=== PATIENT | female | born 1950 | race Hispanic/Latino ===

== ENCOUNTER 2018-06-29 17:22 | Emergency (ER) | payer MEDICARE, OTHER ==
[~2018-06-29] VITALS: Ht 154.9 cm; Wt 81.6 kg
[~2018-06-29 17:22] MED LIST: AMLODIPINE BESYL5 MG; HYDROCHLOROTHIA25 MG; HYDROCODONE; MAGNESIUM OXID400 MG PO; METOPROLOL SUCC50 MG PO; NORCO 7.5-3251 EACH PO; POTASSIUM CHLO10 ME1 PO
--- OUTSIDE RECORDS SUMMARY | 2018-06-29 17:27 | XMS REPORT ---
[facility] Address Unknown Phone Unavailable Care Team Providers Care Floor Covering Layer Name Role Phone Unavailable Unavailable Payers Payer Name Policy Type Policy Number Effective Date Expiration Date Problems This patient has no known problems. Allergies, Adverse Reactions, Alerts Allergy Name Allergy Type Status Severity Reaction(s) Onset Date Inactive Date Treating Clinician Comments No Known Allergies DA Active U 2018-03-09 00:00:00 No Known Allergies DA Active U 2012-12-16 00:00:00 Medications This patient has no known medications.
[2018-06-29] MEDS ORDERED: CYCLOBENZAPRINE HCL 10 MG TAB PO ONE (18:00)
[2018-06-29] MEDS ORDERED: HYDROCODONE/APAP 7.5MG-325MG 1 EA TAB PO PRN (18:00)
--- NOTE | 2018-06-29 18:32 | NUR ---
C/O CHEST PAIN, ONSET WHILE SITTING IN LOBBY. NO SIGNS OF ACUTE DISTRESS NOTED AT THIS TIME. NOTIFIED CASSY DE SANTIAGO NP.
[2018-06-29] MEDS ORDERED: ASPIRIN 81 MG CHEW TAB PO ONE (18:45)
[2018-06-29 19:27] LABS: BASOPHILS # (AUTO) 0.1 (0.0-0.1); BASOPHILS % 0.7 % (0.0-1.0); EOSINOPHILS # (AUTO) 0.2 (0.0-0.4); HEMATOCRIT 41.2 % (34.2-44.1); HEMOGLOBIN 13.4 g/dL (12.0-16.0); LYMPHOCYTES # (AUTO) 2.2 (1.0-3.2); LYMPHOCYTES % 30.1 % (18.0-39.1); MEAN CORPUSCULAR HEMOGLOBIN 28.2 pg (28-32); MEAN CORPUSCULAR HGB CONC 32.5 g/dL (31-35); MEAN CORPUSCULAR VOLUME 86.6 fL (81-99); MONOCYTES # (AUTO) 0.6 (0.2-0.8); MONOCYTES % 8.2 % (4.4-11.3); NEUTROPHILS # (AUTO) 4.3 (2.1-6.9); NEUTROPHILS % 58.7 % (38.7-80.0); PLATELET COUNT 201 x10e3/uL (140-360); RED BLOOD COUNT 4.76 x10e6/uL (3.6-5.1); RED CELL DISTRIBUTION WIDTH 14.8 % (11.7-14.4)
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
[2018-06-29 19:45] LABS: ALANINE AMINOTRANSFERASE 23 IU/L (0-55); ALBUMIN 3.6 g/dL (3.5-5.0); ALKALINE PHOSPHATASE 93 IU/L (40-150); ANION GAP 13.8 mmol/L (8-16); BLOOD UREA NITROGEN 22 mg/dL (7-26); BUN/CREATININE RATIO 29 (6-25); CALCIUM 9.4 mg/dL (8.4-10.2); CARBON DIOXIDE 24 mmol/L (22-29); CHLORIDE 105 mmol/L (98-107); CREATINE KINASE 83 IU/L (29-168); CREATININE, SERUM 0.76 mg/dL (0.57-1.11); EST GLOMERULAR FILTRATION RATE > 60 ML/MIN (60-); GLUCOSE 108 mg/dL (74-118); POTASSIUM 3.8 mmol/L (3.5-5.1); SODIUM 139 mmol/L (136-145)
[2018-06-29 19:48] LABS: INR 0.85; PARTIAL THROMBOPLASTIN TIME 24.5 seconds (23.8-35.5); PROTHROMBIN TIME 12.4 seconds (11.9-14.5)
[2018-06-29 20:09] VITALS: BP 135/65
[2018-06-29] MEDS ORDERED: CYCLOBENZAPRINE5 MG PO (20:21)
[2018-06-29] MEDS ORDERED: ULTRAM 50MG50 MG PO (20:21)
== END 2018-06-29 20:22 | disposition home or self-care (01) ==
LOC: ER 17:22
DX: M54.2 Cervicalgia (principal); S16.1XXA Strain of muscle, fascia and tendon at neck level, initial encounter; S39.012A Strain of muscle, fascia and tendon of lower back, initial encounter; V43.52XA Car driver injured in collision with other type car in traffic accident, initial encounter; Y92.488 Other paved roadways as the place of occurrence of the external cause; I10 Essential (primary) hypertension
CPT/HCPCS: 36415; 71046; 72050; 80053; 82550; 82553; 84484; 85025; 85610; 85730; 93005; 99284

== ENCOUNTER 2019-12-03 16:29 | Emergency (ER) | payer MEDICARE, OTHER ==
[~2019-12-03] VITALS: Ht 154.9 cm; Wt 81.6 kg
[~2019-12-03 16:29] MED LIST changes: +CYCLOBENZAPRINE5 MG PO; +ULTRAM 50MG50 MG PO
--- NOTE | 2019-12-03 19:42 | Emergency Department Note ---
History of Present Illnes History of Present Illness Chief Complaint: General Medicine Complaints History of Present Illness This is a 69 year old female PATIENT IN FROM HOME STATING "I AM HERE FOR A COVID TEST". PATIENT STATES THAT HER DAUGHTER TESTED POSITIVE. PATIENT STATES SHE HAS HAD A COUGH SINCE YESTERDAY, NO FEVER, CHILLS, NAUSEA, VOMITING, DIARRHEA, OR SHORTNESS OF BREATH. PATIENT ALERT AND ORIENTED, RESP EVEN AND NONLABORED, APPEARS IN NO DISTRESS, O2 SATS 97% ON ROOM AIR, AMBULATORY WITH STEADY GAIT. 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 Any updates have been documented here. Past Medical History Recent Fever: No Clinical Suspicion of Infectio: No New/Unexplained Change in Ment: No Past Medical History: Hypertension Other Medical History: KIDNEY STONES Past Surgical History: Hysterectomy Social History Smoking Cessation: Never Smoker Counseling Performed: No Alcohol Use: None Any Illegal Drug Use: No TB Exposure/Symptoms: No Physically hurt or threatened: No Family History Family history of heart diseas: No Other Last Tetanus: UNKNOWN Any Pre-Existing Lines (PICC,: No Is patient up to date on immun: Yes Last Flu: UTD Last Pneumovax: UTD Review of Systems Review of Systems Constitutional: Reports no symptoms EENTM: Reports no symptoms Cardiovascular: Reports no symptoms Respiratory: Reports cough; Denies dyspnea Gastrointestinal: Reports no symptoms Genitourinary: Reports no symptoms Musculoskeletal: Reports no symptoms Integumentary: Reports no symptoms Neurological: Reports no symptoms Psychological: Reports no symptoms Endocrine: Reports no symptoms Hematological/Lymphatic: Reports no symptoms Physical Exam Related Data Allergies: Coded Allergies: No Known Allergies (Unverified , 02/08/13) Triage Vital Signs Vital Signs Date Time Temp Pulse Resp B/P (MAP) Pulse Ox O2 Delivery O2 Flow Rate FiO2 12/03/19 16:47 98.8 74 18 192/92 97 Vital signs reviewed: Yes Physical Exam CONSTITUTIONAL Constitutional: Present well-developed, Present well-nourished HENT HENT: Present normocephalic, Present atraumatic, Present oropharynx clear/moist, Present nose normal HENT L/R: Present left ext ear normal, Present right ext ear normal EYES Eyes: Reports PERRL, Reports conjunctivae normal NECK Neck: Present ROM normal PULMONARY Pulmonary: Present effort normal, Present breath sounds normal CARDIOVASCULAR Cardiovascular: Present regular rhythm, Present heart sounds normal, Present capillary refill normal, Present normal rate GASTROINTESTINAL Abdominal: Present soft, Present nontender, Present bowel sounds normal GENITOURINARY Genitourinary: Present exam deferred SKIN Skin: Present warm, Present dry MUSCULOSKELETAL Musculoskeletal: Present ROM normal NEUROLOGICAL Neurological: Present alert, Present oriented x 3, Present no gross motor or sensory deficits PSYCHOLOGICAL Psychological: Present mood/affect normal, Present judgement normal Assessment & Plan Medical Decision Making MDM PT'S VITALS ARE NORMAL, O2 SAT NORMAL. EXPLAINED NEED TO GET OUTPT COVID TEST, SELF-QUARANTINE, PRONING, F/U PCP AND RTED IF SX'S WORSEN, SOB, CP Assessment & Plan Final Impression: (1) Viral bronchitis Depart Disposition: HOME, SELF-CARE Last Vital Signs Date Time Temp Pulse Resp B/P (MAP) Pulse Ox O2 Delivery O2 Flow Rate FiO2 12/03/19 16:47 98.8 74 18 192/92 97 Home Meds Reported Medications Tramadol Hcl* (ULTRAM 50MG*) 50 Mg Tab, 50 MG PO Q6H PRN for PAIN, TAB 1-2 tabs 06/29/18 Cyclobenzaprine Hcl (FLEXERIL) 5 Mg Tablet, 10 MG PO TID PRN for MUSCLE SPASMS 06/29/18 Potassium Chloride (POTASSIUM CHLORIDE) 10 Meq Tab.er.prt, 10 MEQ PO DAILY, TAB 11/22/15 Magnesium Oxide (MAGNESIUM OXIDE) 400 Mg Tablet, 400 MG PO BID, TAB 11/22/15 Metoprolol Succinate (METOPROLOL SUCCINATE) 50 Mg Tab.er.24h, 50 MG PO DAILY, MG 11/22/15 PRINCESS LEES MD Dec 03, 2019 19:42
== END 2019-12-03 17:10 | disposition home or self-care (01) ==
LOC: ER 16:29
DX: R05 Cough (principal); J20.8 Acute bronchitis due to other specified organisms
CPT/HCPCS: 99282

== ENCOUNTER 2019-12-05 05:43 | Emergency (ER) | payer MEDICARE, OTHER ==
[~2019-12-05] VITALS: Ht 162.6 cm; Wt 87.1 kg
[2019-12-05] MEDS ORDERED: SODIUM CHLORIDE 0.9% 1000ML 1,000 ML IV STA ×2 (06:08→06:12)
[2019-12-05] MEDS ORDERED: SODIUM CHLORIDE 0.9% 1000ML 1,000 ML ONE ×2 (06:13→07:01)
[2019-12-05] MEDS ORDERED: DICYCLOMINE HCL 20 MG/2 ML VIAL IM ONE ×2 (06:15→07:01)
[2019-12-05] MEDS ORDERED: LEVOFLOXACIN 750MG/D5W 150ML 150 ML IV STA (06:47)
--- NOTE | 2019-12-05 06:50 | Emergency Department Note ---
History of Present Illnes History of Present Illness Chief Complaint: diarrhea History of Present Illness This is a 69 year old female. was doing well until 5 days ago then cough, f/c then dx with pneumonia 1 day and started antibiotics. then copious diarrhea. then ble cramps. Arrival Mode: Car History limited by: condition of the patient (normal) Life Coach Required: No Onset (how long ago): day(s) (5) Location: n/a Quality: n/a Severity: moderate Onset quality: gradual Duration (how long): day(s) (5 ) Timing of current episode: intermittent Progression: resolved Context: Denies recent illness, Denies recent surgery, Denies recent immobilization, Denies recent travel Relieving factors: none Exacerbating factors: none Associated symptoms: Reports cough Treatments prior to arrival: none Past Medical/Family History Physician Review I have reviewed the patient's past medical and family history. Any updates have been documented here. Past Medical History Recent Fever: No Clinical Suspicion of Infectio: No New/Unexplained Change in Ment: No Past Medical History: Hypertension Other Medical History: KIDNEY STONES Past Surgical History: Hysterectomy Social History Smoking Cessation: Never Smoker Alcohol Use: Social Any Illegal Drug Use: No TB Exposure/Symptoms: No Physically hurt or threatened: No Family History Family history of heart diseas: No Other Last Tetanus: UNKNOWN Any Pre-Existing Lines (PICC,: No Is patient up to date on immun: No Review of Systems Review of Systems Constitutional: Reports no symptoms EENTM: Reports no symptoms Cardiovascular: Reports no symptoms Respiratory: Reports as per HPI Gastrointestinal: Reports as per HPI Genitourinary: Reports no symptoms Musculoskeletal: Reports no symptoms Integumentary: Reports no symptoms Neurological: Reports no symptoms Psychological: Reports no symptoms Endocrine: Reports no symptoms Hematological/Lymphatic: Reports no symptoms Review of other systems: All other systems negative Physical Exam Related Data Allergies: Coded Allergies: No Known Allergies (Unverified , 02/08/13) Vital signs reviewed: Yes Physical Exam CONSTITUTIONAL Constitutional: Present well-developed, Present well-nourished HENT HENT: Present normocephalic, Present atraumatic, Present nose normal, Present other (dry mm) HENT L/R: Present left ext ear normal, Present right ext ear normal EYES Eyes: Reports PERRL, Reports conjunctivae normal NECK Neck: Present ROM normal, Present supple PULMONARY Pulmonary: Present effort normal, Present breath sounds normal CARDIOVASCULAR Cardiovascular: Present regular rhythm, Present heart sounds normal, Present capillary refill normal, Present normal rate GASTROINTESTINAL Abdominal: Present soft, Present nontender, Present bowel sounds normal GENITOURINARY Genitourinary: Present exam deferred SKIN Skin: Present warm, Present dry MUSCULOSKELETAL Musculoskeletal: Present ROM normal NEUROLOGICAL Neurological: Present alert, Present oriented x 3, Present no gross motor or sensory deficits PSYCHOLOGICAL Psychological: Present mood/affect normal, Present judgement normal Results Imaging Imaging results reviewed: Yes Impressions [place] [address] Patient Name: CARLY ALTAMIRANO MR #: [id number] : 1950 Age/Sex: 69/F Req #: [id number] Adm Physician: Ordered by: SANTOS GASTON Report #: [id number] Location: [facility] Room/Bed: Procedure: [id number] HOPD/CXR 1 W - HOPD Exam Date: 12/05/19 Exam Time: 0635 REPORT STATUS: Signed Examination: Single AP view of the chest. COMPARISON: Chest 2 views 06/29/2018 INDICATION: Cough, diagnosed with pneumonia IMPRESSION: Exam limited by soft tissue attenuation from body habitus. 1. Lines and Tubes: None 2. Lungs are well-inflated. Atelectatic changes in the right base, likely due to eventration of the right hemidiaphragm. The lateral aspect of the left hemidiaphragm and left costophrenic angle are not clearly visualized. This may reflect left effusion and atelectasis or consolidation. Recommend chest PA and lateral for further evaluation. 3. Stable enlargement of the cardiac silhouette. Central pulmonary venous congestion. 4. No acute bony abnormalities. Signed by: Dr. Greta Torres M.D. on 12/05/2019 6:57 AM Dictated By: GRETA TORRES MD 6 Transcribed By: RUDDY on 12/05/19656 COPY TO: SANTOS GASTON~ Assessment & Plan Medical Decision Making MDM TAKE RXED MEDS. F/U PCP Reassessment Reassessment SYMPTOMS RESOLVED S/P MEDS Assessment & Plan Final Impression: (1) Diarrhea (2) Dehydration (3) Pneumonia Depart Disposition: HOME, SELF-USP Meds Active Scripts Cyclobenzaprine Hcl (FLEXERIL) 5 Mg Tablet, 10 MG PO Q8H PRN for MUSCLE SPASMS, #15 1 Refill Prov:SANTOS GASTON 12/05/19 Levofloxacin (LEVAQUIN) 750 Mg Tablet, 750 MG PO DAILY for 10 Days, TAB start tomorrow Prov:SANTOS GASTON 12/05/19 Diphenoxylate Hcl/Atropine (LOMOTIL TABLET) 1 Each Tablet, 2 TAB PO Q6HR PRN for DIARRHEA, #24 TAB 1 Refill Prov:SANTOS GASTON 12/05/19 Reported Medications Tramadol Hcl* (ULTRAM 50MG*) 50 Mg Tab, 50 MG PO Q6H PRN for PAIN, TAB 1-2 tabs 06/29/18 Cyclobenzaprine Hcl (FLEXERIL) 5 Mg Tablet, 10 MG PO TID PRN for MUSCLE SPASMS 06/29/18 Potassium Chloride (POTASSIUM CHLORIDE) 10 Meq Tab.er.prt, 10 MEQ PO DAILY, TAB 11/22/15 Magnesium Oxide (MAGNESIUM OXIDE) 400 Mg Tablet, 400 MG PO BID, TAB 11/22/15 Metoprolol Succinate (METOPROLOL SUCCINATE) 50 Mg Tab.er.24h, 50 MG PO DAILY, MG 11/22/15 Medications in the ED Sodium Chloride 1,000 ml @ ud STK-MED ONCE .ROUTE ; Start 12/05/19 at 06:13; Stop 12/05/19 at 06:09; Status DC Sodium Chloride 1,000 ml @ 2,000 mls/hr Q30M STAT IV ; Start 12/05/19 at 06:08; Stop 12/05/19 at 06:37 Sodium Chloride 1,000 ml @ 2,000 mls/hr Q30M STAT IV ; Start 12/05/19 at 06:12; Stop 12/05/19 at 06:41 Dicyclomine HCl 20 mg ONCE ONCE IM ; Start 12/05/19 at 06:15; Stop 12/05/19 at 06:16 SANTOS GASTON Dec 05, 2019 06:50
--- NOTE | 2019-12-05 07:00 | Diagnostic Imaging Report ---
Examination: Single AP view of the chest. COMPARISON: Chest 2 views 06/29/2018 INDICATION: Cough, diagnosed with pneumonia IMPRESSION: Exam limited by soft tissue attenuation from body habitus. 1. Lines and Tubes: None 2. Lungs are well-inflated. Atelectatic changes in the right base, likely due to eventration of the right hemidiaphragm. The lateral aspect of the left hemidiaphragm and left costophrenic angle are not clearly visualized. This may reflect left effusion and atelectasis or consolidation. Recommend chest PA and lateral for further evaluation. 3. Stable enlargement of the cardiac silhouette. Central pulmonary venous congestion. 4. No acute bony abnormalities. Signed by: Dr. Facundo Rodriguez M.D. on 12/05/2019 6:57 AM
[2019-12-05] MEDS ORDERED: LEVAQUIN750 MG PO (07:16)
[2019-12-05] MEDS ORDERED: LOMOTIL TABLET1 EACH PO (07:16)
[2019-12-05] MEDS ORDERED: CYCLOBENZAPRINE5 MG PO (07:16)
[2019-12-05] MEDS ORDERED: ACETAMINOPHEN 325 MG TAB ONE (07:58)
[2019-12-05] MEDS ORDERED: ACETAMINOPHEN 325 MG TAB PO ONE (08:00)
== END 2019-12-05 09:27 | disposition home or self-care (01) ==
LOC: FSED 05:43
DX: R50.9 Fever, unspecified (principal); R05 Cough; E86.0 Dehydration; J18.9 Pneumonia, unspecified organism; R19.7 Diarrhea, unspecified; I10 Essential (primary) hypertension
CPT/HCPCS: 71045; 80076; 81003; 85025; 96372; 99284; J0500; J7030

== ENCOUNTER 2019-12-06 16:16 | Emergency (ER) | payer OTHER ==
[~2019-12-06] VITALS: Ht 162.6 cm; Wt 87.1 kg
[~2019-12-06 16:16] MED LIST changes: +LEVAQUIN750 MG PO; +LOMOTIL TABLET1 EACH PO
[2019-12-06] MEDS ORDERED: SODIUM CHLORIDE 0.9% 1000ML 1,000 ML IV STA (16:59)
[2019-12-06] MEDS ORDERED: PANTOPRAZOLE 40 MG 10ML VIAL IV ONE (16:59)
[2019-12-06] MEDS ORDERED: ONDANSETRON HCL INJ 2MG/ML 2ML 2 MG/ML VIAL IV ONE (16:59)
--- NOTE | 2019-12-06 17:21 | Emergency Department Note ---
History of Present Illnes History of Present Illness Chief Complaint: COVID PUI History of Present Illness This is a 69 year old female Patient in from home via EMS with complaints of fever since yesterday as well as a cough. Patient reports that she was recently hospitalized for bronchitis and discharged home on antibiotics which caused diarrhea and dehydration per the patient. She believes that all of her symptoms are caused by the dehydration. Patient refused to be tested for Covid 19 again because she says she was tested a week and a half ago and does n ot need to be tested again. 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 Any updates have been documented here. Past Medical History Recent Fever: Yes Clinical Suspicion of Infectio: No New/Unexplained Change in Ment: No Past Medical History: Hypertension Other Medical History: KIDNEY STONES Past Surgical History: None Social History Smoking Cessation: Former smoker Counseling Performed: No Alcohol Use: None Any Illegal Drug Use: No TB Exposure/Symptoms: No Physically hurt or threatened: No Family History Family history of heart diseas: Yes Other Last Tetanus: UNKNOWN Review of Systems Review of Systems Constitutional: Reports as per HPI EENTM: Reports no symptoms Cardiovascular: Reports no symptoms Respiratory: Reports as per HPI Gastrointestinal: Reports no symptoms Genitourinary: Reports no symptoms Musculoskeletal: Reports no symptoms Integumentary: Reports no symptoms Neurological: Reports no symptoms Psychological: Reports no symptoms Endocrine: Reports no symptoms Hematological/Lymphatic: Reports no symptoms Physical Exam Related Data Allergies: Coded Allergies: No Known Allergies (Unverified , 02/08/13) Triage Vital Signs Vital Signs Date Time Temp Pulse Resp B/P (MAP) Pulse Ox O2 Delivery O2 Flow Rate FiO2 12/06/19 16:29 100.1 79 26 148/71 100 Vital signs reviewed: Yes Physical Exam CONSTITUTIONAL Constitutional: Present obese HENT HENT: Present normocephalic, Present atraumatic, Present oropharynx clear /moist, Present nose normal HENT L/R: Present left ext ear normal, Present right ext ear normal EYES Eyes: Reports PERRL, Reports conjunctivae normal NECK Neck: Present ROM normal PULMONARY Pulmonary: Present breath sounds normal, Present other (MILD TACHYPNEA) CARDIOVASCULAR Cardiovascular: Present regular rhythm, Present heart sounds normal, Present capillary refill normal, Present normal rate GASTROINTESTINAL Abdominal: Present soft, Present nontender, Present bowel sounds normal GENITOURINARY Genitourinary: Present exam deferred SKIN Skin: Present warm, Present dry MUSCULOSKELETAL Musculoskeletal: Present ROM normal NEUROLOGICAL Neurological: Present alert, Present oriented x 3, Present no gross motor or sensory deficits PSYCHOLOGICAL Psychological: Present mood/affect normal, Present judgement normal Assessment & Plan Medical Decision Making MDM PT REFUSES ANY WORKUP Reassessment Reassessment PT DECIDED TO LEAVE AND DOESN'T WANT ANYTHING DONE, SHE IS A&OX4 UNDERSTANDS RISKS INCLUDING . SHE IS DISCHARGED FROM MY CARE, WELCOME TO RETURN FOR ANY CONCERNS Assessment & Plan Final Impression: (1) Viral syndrome Depart Disposition: HOME, SELF-CARE Last Vital Signs Date Time Temp Pulse Resp B/P (MAP) Pulse Ox O2 Delivery O2 Flow Rate FiO2 12/06/19 16:29 100.1 79 26 148/71 100 Home Meds Active Scripts Cyclobenzaprine Hcl (FLEXERIL) 5 Mg Tablet, 10 MG PO Q8H PRN for MUSCLE SPASMS, #15 1 Refill Prov:SANTOS GASTON 12/05/19 Levofloxacin (LEVAQUIN) 750 Mg Tablet, 750 MG PO DAILY for 10 Days, TAB start tomorrow Prov:SANTOS GASTON 12/05/19 Diphenoxylate Hcl/Atropine (LOMOTIL TABLET) 1 Each Tablet, 2 TAB PO Q6HR PRN for DIARRHEA, #24 TAB 1 Refill Prov:SANTOS GASTON 12/05/19 Reported Medications Tramadol Hcl* (ULTRAM 50MG*) 50 Mg Tab, 50 MG PO Q6H PRN for PAIN, TAB 1-2 tabs 06/29/18 Cyclobenzaprine Hcl (FLEXERIL) 5 Mg Tablet, 10 MG PO TID PRN for MUSCLE SPASMS 06/29/18 Potassium Chloride (POTASSIUM CHLORIDE) 10 Meq Tab.er.prt, 10 MEQ PO DAILY, TAB 11/22/15 Magnesium Oxide (MAGNESIUM OXIDE) 400 Mg Tablet, 400 MG PO BID, TAB 11/22/15 Metoprolol Succinate (METOPROLOL SUCCINATE) 50 Mg Tab.er.24h, 50 MG PO DAILY, MG 11/22/15 Medications in the ED Pantoprazole Sodium 40 mg ONCE ONCE IV ; Start 12/06/19 at 16:59; Stop 12/06/19 at 17:05; Status DC Ondansetron HCl 4 mg ONCE ONCE IV ; Start 12/06/19 at 16:59; Stop 12/06/19 at 17:05; Status DC Sodium Chloride 1,000 ml @ 0 mls/hr Q0M STAT IV ; Start 12/06/19 at 16:59; Stop 12/06/19 at 17:04; Status DC PRINCESS LEES MD Dec 06, 2019 17:21
== END 2019-12-06 17:42 | disposition home or self-care (01) ==
LOC: ER 16:16
DX: R50.9 Fever, unspecified (principal); R05 Cough; I10 Essential (primary) hypertension; B34.9 Viral infection, unspecified
CPT/HCPCS: 99283

== ENCOUNTER 2019-12-08 10:49 | Emergency (ER) | payer MEDICARE, OTHER ==
[~2019-12-08] VITALS: Ht 154.9 cm; Wt 87.1 kg
--- NOTE | 2019-12-08 11:08 | Emergency Department Note ---
History of Present Illnes History of Present Illness History of Present Illness This is a 69 year old female recently tx for pna, here for f/u. She has been taking levoquin ( 2 days left) She still has low grade fever, mild coughing body ache. COVID negative on the . She asked for work note Past Medical History Hypertension Other Medical History KIDNEY STONES Past Surgical History: None . Arrival Mode: Car Onset (how long ago): day(s) Radiation: Reports non-radiation Duration (how long): day(s) Progression: improving Context: Reports recent illness Relieving factors: none Exacerbating factors: none Associated symptoms: Reports cough, Reports fever/chills, Reports malaise Treatments prior to arrival: none Past Medical/Family History Physician Review I have reviewed the patient's past medical and family history. Any updates have been documented here. Past Medical History Recent Fever: No Clinical Suspicion of Infectio: No New/Unexplained Change in Ment: No Past Medical History: Hypertension Other Medical History: KIDNEY STONES Past Surgical History: None Social History Smoking Cessation: Smoker current status unk Counseling Performed: No Any Illegal Drug Use: No TB Exposure/Symptoms: No Physically hurt or threatened: No Family History Family history of heart diseas: No Other Last Tetanus: UNKNOWN Is patient up to date on immun: No Review of Systems Review of Systems Constitutional: Reports chills, Reports fever, Reports malaise EENTM: Reports no symptoms Cardiovascular: Reports no symptoms Respiratory: Reports no symptoms, Reports chest congestion, Reports cough Gastrointestinal: Reports no symptoms Genitourinary: Reports no symptoms Musculoskeletal: Reports no symptoms Integumentary: Reports no symptoms Neurological: Reports no symptoms Psychological: Reports no symptoms Endocrine: Reports no symptoms Hematological/Lymphatic: Reports no symptoms Physical Exam Related Data Allergies: Coded Allergies: No Known Allergies (Unverified , 02/08/13) Physical Exam CONSTITUTIONAL Constitutional: Present well-developed, Present obese HENT HENT: Present normocephalic, Present atraumatic, Present oropharynx clear/moist, Present nose normal HENT L/R: Present left ext ear normal, Present right ext ear normal EYES Eyes: Reports PERRL, Reports conjunctivae normal NECK Neck: Present ROM normal PULMONARY Pulmonary: Present effort normal, Present breath sounds normal CARDIOVASCULAR Cardiovascular: Present regular rhythm, Present heart sounds normal, Present capillary refill normal, Present normal rate GASTROINTESTINAL Abdominal: Present soft, Present nontender, Present bowel sounds normal GENITOURINARY Genitourinary: Present exam deferred SKIN Skin: Present warm, Present dry MUSCULOSKELETAL Musculoskeletal: Present ROM normal NEUROLOGICAL Neurological: Present alert, Present oriented x 3, Present no gross motor or sensory deficits PSYCHOLOGICAL Psychological: Present mood/affect normal, Present judgement normal Results Laboratory Lab results reviewed: Yes Laboratory comments COVID 19 pending Assessment & Plan Medical Decision Making MDM on going viral illness, chest x ray 12/05/19 reviewed, doubt pna. Assessment & Plan Final Impression: (1) Viral bronchitis Depart Disposition: HOME, SELF-jail Meds Active Scripts Cyclobenzaprine Hcl (FLEXERIL) 5 Mg Tablet, 10 MG PO Q8H PRN for MUSCLE SPASMS, #15 1 Refill Prov:MARILINARLYNLyla PACHECO 12/05/19 Levofloxacin (LEVAQUIN) 750 Mg Tablet, 750 MG PO DAILY for 10 Days, TAB start tomorrow Prov:SANTOS GASTON 12/05/19 Diphenoxylate Hcl/Atropine (LOMOTIL TABLET) 1 Each Tablet, 2 TAB PO Q6HR PRN for DIARRHEA, #24 TAB 1 Refill Prov:DIMITRI GASTONMISAEL PACHECO 12/05/19 Reported Medications Tramadol Hcl* (ULTRAM 50MG*) 50 Mg Tab, 50 MG PO Q6H PRN for PAIN, TAB 1-2 tabs 06/29/18 Cyclobenzaprine Hcl (FLEXERIL) 5 Mg Tablet, 10 MG PO TID PRN for MUSCLE SPASMS 06/29/18 Potassium Chloride (POTASSIUM CHLORIDE) 10 Meq Tab.er.prt, 10 MEQ PO DAILY, TAB 11/22/15 Magnesium Oxide (MAGNESIUM OXIDE) 400 Mg Tablet, 400 MG PO BID, TAB 11/22/15 Metoprolol Succinate (METOPROLOL SUCCINATE) 50 Mg Tab.er.24h, 50 MG PO DAILY, MG 11/22/15 SATYA JO MD Dec 08, 2019 11:07
--- NOTE | 2019-12-09 07:00 | NUR ---
Informed by Dr. Medina of positive results
== END 2019-12-08 11:45 | disposition home or self-care (01) ==
LOC: FSED 10:49
DX: R50.9 Fever, unspecified (principal); U07.1 COVID-19; J20.8 Acute bronchitis due to other specified organisms; R05 Cough; I10 Essential (primary) hypertension
CPT/HCPCS: 87635; 99282

== ENCOUNTER → 2019-12-11 | Emergency (ER) | payer MEDICARE, OTHER | END | disposition left against medical advice (07) | LOC: ER 20:29 | DX: R69 Illness, unspecified (principal) ==

== ENCOUNTER 2022-03-11 18:53 | Emergency (ER) | payer MEDICARE, OTHER ==
[~2022-03-11] VITALS: Ht 154.9 cm; Wt 87.1 kg
== END 2022-03-11 21:44 | disposition home or self-care (01) ==
LOC: ER 19:18
DX: S93.492A Sprain of other ligament of left ankle, initial encounter (principal); X50.1XXA Overexertion from prolonged static or awkward postures, initial encounter; Y93.01 Activity, walking, marching and hiking; Y92.89 Other specified places as the place of occurrence of the external cause; I10 Essential (primary) hypertension; Z87.442 Personal history of urinary calculi
CPT/HCPCS: 99283